=== PATIENT | female | born 1970 | race Caucasian/White ===

== ENCOUNTER 2017-07-25 23:05 | Emergency (ER) | payer OTHER ==
[~2017-07-25] VITALS: Ht 162.6 cm; Wt 102.2 kg
[~2017-07-25 23:05] MED LIST: NOVN SUBQ; NOVR SUBQ
[2017-07-25 23:07] VITALS: BP 150/84
--- NOTE | 2017-07-25 23:15 | NUR ---
PT ASSISTED BACK TO LOBBY
[2017-07-26 00:32] LABS: APPEARANCE,URINE CLOUDY (CLEAR); BILIRUBIN,URINE NEGATIVE (NEGATIVE); BLOOD, URINE 2+ (NEGATIVE); COLOR,URINE YELLOW (YELLOW); LEUKOCYTE ESTERASE ,URINE 3+ (NEGATIVE); NITRITE, URINE NEGATIVE (NEGATIVE); UGLUCOSE NEGATIVE (NEGATIVE)
[2017-07-26 00:37] LABS: RBC,URINE 11-20 (MOD) /HPF (0-5); WBC,URINE TOO MANY TO COUNT /HPF (0-5)
--- NOTE | 2017-07-26 00:46 | NUR ---
PT TAKEN TO BED 9
--- NOTE | 2017-07-26 00:50 | NUR ---
47/F CAME IN ED, C/O 7/10 CRAMPING SUPRAPUBIC PAIN, RADIATING TO LOWER BACK, X1 DAY. PT REPORTS GOING TO A CLINIC ON 07/19/17, WAS + IN URINE AND BLOOD. PT URINE NEGATIVE AT THIS TIME. 1STILL BORN 2 MISCARRIAGES. PT ALSO REPORTS BURNING/DYSURIA. HX DM, HTN. RX INSULIN LANTUS, INSULIN APRIDRA, HTN MED. NKA. SKIN IS INTACT, PINK/WARM/DRY; AAOX4, PERRL, WITH EVEN AND STEADY GAIT; LUNGS CLEAR BL, BREATHING UNLABORED; HR EVEN AND REGULAR, BL PERIPHERAL PULSES PRESENT; BS ACTIVE X4, NO TENDERNESS TO PALPATION; PT DENIES ANY FEVER, CP, SOB, OR COUGH AT THIS TIME; VSS; PATIENT POSITIONED FOR COMFORT; HOB ELEVATED; BEDRAILS UP X2; BED DOWN.
[2017-07-26] MEDS ORDERED: NACL 0.9% 1,000 ML IV SCH (00:57)
[2017-07-26] MEDS ORDERED: ONDANSETRON 4 MG/2 ML VIAL IVP ONE (01:00)
[2017-07-26] MEDS ORDERED: cefTRIAXone 1,000 MG in DEXT 5% MINI-BAG PLUS 50 ML IV ONE (01:00)
[2017-07-26] MEDS ORDERED: MORPHINE SULFATE 4 MG/ML SYR IVP ONE (01:00)
[2017-07-26 01:26] LABS: BASOPHILS # (AUTO) 0.1 K/uL (0.00-0.22); BASOPHILS % (AUTO) 0.7 % (0.0-2.0); EOSINOPHILS # (AUTO) 0.3 K/uL (0-0.4); EOSINOPHILS % (AUTO) 2.4 % (0.0-4.0); HEMATOCRIT 37.4 % (36-48); HEMOGLOBIN 11.9 g/dL (12.0-16.0); LYMPHOCYTES # (AUTO) 3.2 K/uL (2.5-16.5); MEAN CORPUSCULAR HEMOGLOBIN 24 pg (27-31); MEAN CORPUSCULAR HGB CONC 32 g/dL (33-37); MEAN CORPUSCULAR VOLUME 75.9 fL (80-94); MONOCYTES # (AUTO) 0.7 K/uL (0.8-1.0); MONOCYTES % (AUTO) 5.8 % (1.7-9.3); NEUTROPHILS # (AUTO) 7.7 K/uL (1.8-7.7); NEUTROPHILS % (AUTO) 64.1 % (42.2-75.2); PLATELET COUNT (AUTO) 276 K/uL (140-450); RED BLOOD CELL COUNT(AUTO) 4.93 MIL/uL (4.20-5.40); RED CELL DISTRIBUTION WIDTH 15.6 % (11.6-13.7)
--- NOTE | 2017-07-26 01:30 | NUR ---
BLOOD SENT TO LAB, Patient appears to be resting comfortably in bed. Vital Signs within normal limits. Respirations even and unlabored.
[2017-07-26] MEDS ORDERED: cefTRIAXone 1,000 MG VIAL ONE (01:36)
[2017-07-26 01:41] LABS: ANION GAP 7.5 (8-16); CARBON DIOXIDE 29.9 mmol/L (21-32); CREATININE 0.7 mg/dL (0.6-1.3); POTASSIUM 3.4 mmol/L (3.5-5.1)
[2017-07-26 01:47] LABS: ALBUMIN 3.1 g/dL (3.4-5.0); TOTAL BILIRUBIN 0.2 mg/dL (0.0-1.0)
--- NOTE | 2017-07-26 01:54 | NUR ---
Dr. Rosales evaluating patient at bedside.
--- NOTE | 2017-07-26 02:15 | NUR ---
PT RESTING COMFORTABLY IN BED, PT REPORTS DECREASED PAIN 3/10, ALL NEEDS MET AT THIS TIME.
--- NOTE | 2017-07-26 02:23 | NUR ---
MADE PT AWARE THAT PT'S URINE AND BLOOD HCG LEVELS DO NOT SHOW SIGNS OF , EXPLAINED TO PT THAT SHE WAS THE RIGHT TO REFUSE CT. PT AGREED TO HAVE CT SCAN.
[2017-07-26 04:00] VITALS: BP 140/80
--- NOTE | 2017-07-26 04:00 | NUR ---
Patient discharged with v/s stable. Written and verbal after care instructions given and explained. Patient alert, oriented and verbalized understanding of instructions. Ambulatory with steady gait. All questions addressed prior to discharge. ID band removed. Patient advised to follow up with PMD. Rx of CEPHALEXIN 500MG, PHENAZOPYRIDINE 200MG given. Patient educated on indication of medication including possible reaction and side effects. Opportunity to ask questions provided and answered.
== END 2017-07-26 04:00 | disposition home or self-care (01) ==
LOC: MED 23:05
DX: O23.41 Unspecified infection of urinary tract in pregnancy, first trimester (principal); Z3A.01 Less than 8 weeks gestation of pregnancy
CPT/HCPCS: 36415; 74176; 80053; 81001; 81025; 83690; 84702; 85025; 87086; 96365; 96375; 99285; J0696; J2270; J2405; J7030; J7060

== ENCOUNTER 2017-08-05 22:34 | Emergency (ER) | payer OTHER ==
[~2017-08-05] VITALS: Ht 162.6 cm; Wt 102.3 kg
[2017-08-05 22:39] VITALS: BP 137/89
[2017-08-05] MEDS ORDERED: INSU100S22 SUBQ (22:44)
--- NOTE | 2017-08-05 22:46 | NUR ---
URINE COLLECTED. LABS ORDERED. PT RETURNED TO LOBBY.
--- NOTE | 2017-08-05 22:53 | NUR ---
LABS BEING DONE
--- NOTE | 2017-08-05 22:59 | NUR ---
PT TO ER BED 4
--- NOTE | 2017-08-05 23:00 | NUR ---
ASSUMED CARE OF PT AT THIS TIME. C/O DIFFUSE ABDOMINAL PAIN W/ NAUSEA X 1 DAY. DENIES V/D; SKIN IS PINK/WARM/DRY; AAOX4 WITH EVEN AND STEADY GAIT; LUNGS CLEAR BL; HR EVEN AND REGULAR; PT DENIES ANY FEVER, CP, SOB, OR COUGH AT THIS TIME; PATIENT STATES PAIN OF 5/10; VSS; PATIENT POSITIONED FOR COMFORT; HOB ELEVATED; BEDRAILS UP X2; BED DOWN. ER MD MADE AWARE OF PT STATUS. WILL CONTINUE TO MONITOR.
[2017-08-05 23:06] LABS: BASOPHILS # (AUTO) 0.1 K/uL (0.00-0.22); BASOPHILS % (AUTO) 0.6 % (0.0-2.0); EOSINOPHILS # (AUTO) 0.2 K/uL (0-0.4); EOSINOPHILS % (AUTO) 1.5 % (0.0-4.0); HEMATOCRIT 39.6 % (36-48); HEMOGLOBIN 12.5 g/dL (12.0-16.0); LYMPHOCYTES # (AUTO) 3.2 K/uL (2.5-16.5); LYMPHOCYTES % (AUTO) 31.6 % (20.5-51.1); MEAN CORPUSCULAR HEMOGLOBIN 24 pg (27-31); MEAN CORPUSCULAR HGB CONC 32 g/dL (33-37); MEAN CORPUSCULAR VOLUME 76.4 fL (80-94); MONOCYTES # (AUTO) 0.6 K/uL (0.8-1.0); MONOCYTES % (AUTO) 5.7 % (1.7-9.3); NEUTROPHILS # (AUTO) 6.1 K/uL (1.8-7.7); NEUTROPHILS % (AUTO) 60.6 % (42.2-75.2); PLATELET COUNT (AUTO) 290 K/uL (140-450); RED BLOOD CELL COUNT(AUTO) 5.18 MIL/uL (4.20-5.40); RED CELL DISTRIBUTION WIDTH 15.1 % (11.6-13.7); WHITE BLOOD COUNT (AUTO) 10.1 K/uL (4.8-10.8)
[2017-08-05 23:13] LABS: APPEARANCE,URINE CLOUDY (CLEAR); BILIRUBIN,URINE NEGATIVE (NEGATIVE); BLOOD, URINE TRACE-I (NEGATIVE); COLOR,URINE YELLOW (YELLOW); LEUKOCYTE ESTERASE ,URINE NEGATIVE (NEGATIVE); NITRITE, URINE NEGATIVE (NEGATIVE); UGLUCOSE 3+ (NEGATIVE)
[2017-08-05 23:19] LABS: ANION GAP 9.4 (8-16); CARBON DIOXIDE 28.5 mmol/L (21-32); CREATININE 0.7 mg/dL (0.6-1.3); POTASSIUM 3.9 mmol/L (3.5-5.1)
[2017-08-05 23:22] LABS: RBC,URINE 0-5 (RARE) /HPF (0-5); URINE AMORPHOUS URATE 1+ /HPF (None Seen); WBC,URINE 0-5 (RARE) /HPF (0-5)
[2017-08-05 23:26] LABS: ALBUMIN 3.2 g/dL (3.4-5.0); TOTAL BILIRUBIN 0.3 mg/dL (0.0-1.0)
--- NOTE | 2017-08-06 03:24 | NUR ---
Patient discharged with v/s stable. Written and verbal after care instructions given and explained. Patient verbalized understanding. Ambulatory with steady gait. All questions addressed prior to discharge. Advised to follow up with PMD.
[2017-08-06 03:25] VITALS: BP 137/89
== END 2017-08-06 03:24 | disposition home or self-care (01) ==
LOC: MED 22:34
DX: R93.8 Abnormal findings on diagnostic imaging of other specified body structures (principal); E11.9 Type 2 diabetes mellitus without complications; R10.9 Unspecified abdominal pain; Z79.899 Other long term (current) drug therapy; Z90.49 Acquired absence of other specified parts of digestive tract
CPT/HCPCS: 36415; 76801; 80053; 81001; 81025; 84702; 85025; 99285; Q0092

== ENCOUNTER 2018-12-21 21:14 | Emergency (ER) | payer OTHER ==
[~2018-12-21] VITALS: Ht 162.6 cm; Wt 103.0 kg
[~2018-12-21 21:14] MED LIST changes: +INSU100S22 SUBQ; -NOVN SUBQ; -NOVR SUBQ
[2018-12-21 21:50] VITALS: BP 144/73
--- NOTE | 2018-12-21 21:57 | NUR ---
PT AMBULATES TO LOBBY WITH STEADY GAIT. URINE CUP PROVIDED. AWAITING AVAILABLE BED.
--- NOTE | 2018-12-22 00:38 | NUR ---
PT AMBULATED TO BED 08.
[2018-12-22] MEDS ORDERED: NACL 0.9% 1,000 ML IV ONE (00:50)
--- NOTE | 2018-12-22 01:22 | NUR ---
48 Y/O FEMALE PRESENTS TO ED, C/O HYPERGLYCEMIA AND ABDOMINAL PAIN. PT STATES ABDOMINAL PAIN STARTED X1 WEEK. DOES NOT RADIATE. DENIES TAKING ANY MEDICATIONS FOR PAIN. PT IS CURRENTLY ON LANTUS AND METFORMIN; STATES BEING COMPLIANT WITH MEDICATION. PT DENIES ANY DIZZINESS, NVD. PT C/O BLURRY VISION X1 DAY. PT VSS. ERMD AWARE. WILL CONTINUE TO MONITOR.
[2018-12-22 01:33] LABS: CARBON DIOXIDE 26.1 mmol/L (21-32); POTASSIUM 4.1 mmol/L (3.5-5.1)
[2018-12-22 01:34] LABS: CREATININE 0.6 mg/dL (0.6-1.3)
[2018-12-22 01:39] LABS: TOTAL BILIRUBIN 0.3 mg/dL (0.0-1.0)
[2018-12-22 01:40] LABS: ALBUMIN 3.1 g/dL (3.4-5.0)
[2018-12-22 01:45] LABS: BASOPHILS # (AUTO) 0.1 K/uL (0.00-0.22); BASOPHILS % (AUTO) 0.7 % (0.0-2.0); EOSINOPHILS # (AUTO) 0.2 K/uL (0-0.4); HEMATOCRIT 36.8 % (36-48); HEMOGLOBIN 11.5 g/dL (12.0-16.0); LYMPHOCYTES # (AUTO) 3.1 K/uL (2.5-16.5); LYMPHOCYTES % (AUTO) 26.5 % (20.5-51.1); MEAN CORPUSCULAR HEMOGLOBIN 23 pg (27-31); MEAN CORPUSCULAR HGB CONC 31 g/dL (33-37); MEAN CORPUSCULAR VOLUME 71.9 fL (80-94); MONOCYTES # (AUTO) 0.7 K/uL (0.8-1.0); MONOCYTES % (AUTO) 5.6 % (1.7-9.3); NEUTROPHILS # (AUTO) 7.7 K/uL (1.8-7.7); NEUTROPHILS % (AUTO) 65.2 % (42.2-75.2); PLATELET COUNT (AUTO) 330 K/uL (140-450); RED BLOOD CELL COUNT(AUTO) 5.12 MIL/uL (4.20-5.40); RED CELL DISTRIBUTION WIDTH 15.6 % (11.6-13.7); WHITE BLOOD COUNT (AUTO) 11.9 K/uL (4.8-10.8)
--- NOTE | 2018-12-22 02:08 | NUR ---
TO X RAY WITH TECH VIA WHEELCHAIR.
[2018-12-22 03:30] VITALS: BP 148/70
--- NOTE | 2018-12-22 03:30 | NUR ---
PT DISCHARGED WITH PAPERWORK. RX MINERAL OIL, LACTULOSE, ZOFRAN. EDUCATED PT REGARDING MEDICATIONS AND S/E. EDUCATED PT REGARDING D/C DIAGNOSIS AND INSTRUCTIONS. PT VERBALIZED UNDERSTANDING OF TEACHING. TOLD PT TO FOLLOW UP WITH PCP AND WHEN TO RETURN TO ED. PT VSS. ALL QUESTIONS ANSWERED.
== END 2018-12-22 03:30 | disposition home or self-care (01) ==
LOC: MED 21:14
DX: K59.00 Constipation, unspecified (principal); R30.0 Dysuria; E11.9 Type 2 diabetes mellitus without complications; Z79.4 Long term (current) use of insulin
CPT/HCPCS: 36415; 74022; 80053; 85025; 99284; J7030

== ENCOUNTER 2022-09-05 06:34 | Day surgery (SDC) | payer OTHER ==
[~2022-09-05] VITALS: Ht 162.6 cm; Wt 83.5 kg
[2022-09-05] MEDS ORDERED: fentaNYL citrate 0.05 MG/ML VIAL ONE (07:37)
[2022-09-05] MEDS ORDERED: MIDAZOLAM 5 MG/5 ML VIAL ONE (07:37)
[2022-09-05] MEDS ORDERED: fentaNYL citrate 0.05 MG/ML VIAL IVP ONE ×2 (08:10→08:15)
== END 2022-09-05 08:45 | disposition home or self-care (01) ==
LOC: MDS 06:34 → MMU 06:36 → MDS 08:45
PROVIDERS: ATTEND Internal Medicine Gastroenterology
DX: Z12.11 Encounter for screening for malignant neoplasm of colon (principal); I10 Essential (primary) hypertension; E11.9 Type 2 diabetes mellitus without complications; Z90.49 Acquired absence of other specified parts of digestive tract; Z98.84 Bariatric surgery status; Z79.84 Long term (current) use of oral hypoglycemic drugs
CPT/HCPCS: 45378; J3010; J2250